=== PATIENT | female | born 1940 | race Hispanic/Latino ===

== ENCOUNTER → 2020-12-19 | Outpatient (CLI) | payer MEDICARE, OTHER | LOC: RAD 11:18 | DX: R07.89 Other chest pain (principal); M79.672 Pain in left foot; M79.671 Pain in right foot | CPT/HCPCS: 71046 ==

== ENCOUNTER 2021-03-23 09:00 | Outpatient (RCR) | payer MEDICARE, OTHER | END 2021-03-24 | LOC: PT 09:00 | PROVIDERS: ATTEND Physician Assistant | DX: M47.816 Spondylosis without myelopathy or radiculopathy, lumbar region (principal) ==

== ENCOUNTER 2021-04-21 09:00 | Outpatient (RCR) | payer MEDICARE, OTHER | END 2021-04-23 | LOC: PT 09:00 | PROVIDERS: ATTEND Physician Assistant | DX: M47.816 Spondylosis without myelopathy or radiculopathy, lumbar region (principal) ==

== ENCOUNTER 2021-05-08 09:00 | Outpatient (RCR) | payer MEDICARE, OTHER | END 2021-05-24 | LOC: PT 09:00 | PROVIDERS: ATTEND Physician Assistant | DX: M47.816 Spondylosis without myelopathy or radiculopathy, lumbar region (principal) ==

== ENCOUNTER → 2022-06-28 | Outpatient (CLI) | payer MEDICARE | LOC: RAD 11:04 | DX: M54.50 Low back pain, unspecified (principal) | CPT/HCPCS: 72110 ==

== ENCOUNTER → 2023-01-14 | Outpatient (CLI) | payer MEDICARE | LOC: MRI 13:48 | PROVIDERS: ATTEND Physician Assistant | DX: M47.816 Spondylosis without myelopathy or radiculopathy, lumbar region (principal) | CPT/HCPCS: 72148 ==

== ENCOUNTER 2023-06-21 12:40 | Outpatient (RCR) | payer MEDICARE | END 2023-06-23 | LOC: PT 12:40 | PROVIDERS: ATTEND Specialist | DX: M47.816 Spondylosis without myelopathy or radiculopathy, lumbar region (principal); M53.86 Other specified dorsopathies, lumbar region; M62.81 Muscle weakness (generalized); R26.2 Difficulty in walking, not elsewhere classified ==

== ENCOUNTER 2024-04-26 14:00 | Emergency (ER) | payer MEDICARE ==
[~2024-04-26] VITALS: Ht 147.3 cm; Wt 55.8 kg
[2024-04-26 15:10] VITALS: PULSE 56; RESP 16; TEMP 98.3; O2SAT 100
[2024-04-26] MEDS ORDERED: FAMOTIDINE40 MG (16:00)
[2024-04-26] MEDS ORDERED: NEOMYC-POLYM-D3.5 GM (16:00)
[2024-04-26] MEDS ORDERED: AZITHROMYCIN250 MG (16:00)
[2024-04-26] MEDS ORDERED: LOSARTAN POTASS50 MG (16:00)
[2024-04-26] MEDS ORDERED: OMEPRAZOLE40 MG (16:00)
[2024-04-26 16:18] LABS: BASOPHILS # (AUTO) 0.1 (0.0-0.1); EOSINOPHILS # (AUTO) 0.1 (0.0-0.4); EOSINOPHILS % 2.5 % (0.0-6.0); HEMATOCRIT 40.7 % (34.2-44.1); LYMPHOCYTES # (AUTO) 1.9 (1.0-3.2); LYMPHOCYTES % 35.4 % (18.0-39.1); MEAN CORPUSCULAR HEMOGLOBIN 30.9 pg (28-32); MEAN CORPUSCULAR HGB CONC 31.9 g/dL (31-35); MEAN CORPUSCULAR VOLUME 96.7 fL (81-99); MONOCYTES # (AUTO) 0.4 (0.2-0.8); MONOCYTES % 8.4 % (4.4-11.3); NEUTROPHILS # (AUTO) 2.8 (2.1-6.9); NEUTROPHILS % 52.5 % (38.7-80.0); PLATELET COUNT 190 x10e3/uL (140-360); RED BLOOD COUNT 4.21 x10e6/uL (3.6-5.1); WHITE BLOOD COUNT 5.26 x10e3/uL (4.8-10.8)
[2024-04-26] MEDS: BELLADONNA ALK/PHENOBARBITAL 5 ML UDC PO STA (16:40)
[2024-04-26] MEDS: LIDOCAINE VISC 2% SOLN 15 ML UDC PO ONE (16:40)
[2024-04-26] MEDS: MAGNESIUM/ALUMINUM/SIMETHICONE 30 ML UDC PO ONE (16:41)
[2024-04-26 16:46] LABS: ALBUMIN/GLOBULIN RATIO 1.3 (0.8-2.0); BILIRUBIN,TOTAL 0.7 mg/dL (0.2-1.2); CALCIUM 9.1 mg/dL (8.4-10.2); CREATININE, SERUM 0.78 mg/dL (0.57-1.11); TOTAL PROTEIN 7.1 g/dL (6.5-8.1)
[2024-04-26 16:52] LABS: TROPONIN I 0.001 ng/mL (0-0.300)
== END 2024-04-26 17:55 | disposition home or self-care (01) ==
LOC: ER 14:05
DX: R10.13 Epigastric pain (principal); K29.70 Gastritis, unspecified, without bleeding; R11.2 Nausea with vomiting, unspecified; I10 Essential (primary) hypertension; K21.9 Gastro-esophageal reflux disease without esophagitis
CPT/HCPCS: 36415; 71045; 76705; 80053; 83690; 84484; 85025; 93005; 99284; J2470